=== PATIENT | female | born 1950 | race Caucasian/White ===

== ENCOUNTER → 2020-04-04 | Outpatient (CLI) | payer OTHER, BC ==
[2020-04-04 10:52] LABS: ABSOLUTE NEUTROPHILS 3.1 thou/uL (1.4-8.2); BASOPHILS 1.3 % (0.0-2.0); EOSINOPHILS 2.8 % (0.0-3.0); HEMATOCRIT 40.8 % (37.0-47.0); HEMOGLOBIN 13.7 gm/dL (12.0-15.0); LYMPHOCYTES 10.9 % (24.0-44.0); MCHC 33.5 g/dL (28.0-37.0); MCV 92.7 fL (80.0-100.0); MONOCYTES 5.3 % (1.0-8.0); PLATELET COUNT 126 thou/uL (150-400); POLYS 79.7 % (36.0-66.0); RDW 16.7 % (10.5-14.5); WBC 3.9 thou/uL (4.0-11.0)
[2020-04-04 11:01] LABS: CALCIUM 8.9 mg/dL (8.5-10.1); CREATININE 0.9 mg/dL (0.6-1.0)
== END ==
LOC: CAT 10:06
DX: R91.8 Other nonspecific abnormal finding of lung field (principal); J98.4 Other disorders of lung